=== PATIENT | male | born 1940 | race Caucasian/White ===

== ENCOUNTER 2018-03-07 13:40 | Inpatient (IN) | payer BC | END 2018-03-09 14:12 | disposition home or self-care (01) | LOC: ER 13:40 → SUR 3N 19:51 → ER 19:19 → SUR 3N 19:19 | PROC: 0DTN4ZZ Resection of Sigmoid Colon, Percutaneous Endoscopic Approach (ICD-10-PCS; principal; 2018-03-07 16:13) | PROC: 07TB4ZZ Resection of Mesenteric Lymphatic, Percutaneous Endoscopic Approach (ICD-10-PCS; 2018-03-07 16:13) | DX: K56.699 Other intestinal obstruction unspecified as to partial versus complete obstruction (principal); I10 Essential (primary) hypertension ==

== ENCOUNTER 2021-12-26 17:39 | Inpatient (IN) | payer BC ==
[~2021-12-26] VITALS: Ht 165.1 cm; Wt 81.8 kg
[~2021-12-26 17:39] MED LIST: HYDR25TA4 PO; LISI40TA13 PO; TERA2CAP4 PO
[2021-12-26 18:14] LABS: MEAN PLATELET VOLUME 7.6 FL (7.4-10.4)
--- NOTE | 2021-12-26 18:15 | NUR ---
PATIENT STATES AT 2200 LAST NIGHT HE WOKE UP DIAPHORETIC WITH STERNAL SHARP/BURNING CHEST PAIN RADIATING TO LEFT CHEST AND NAUSEA. PATIENT GOT UP TO VOMIT BUT WAS NOT ABLE TO. PATIENT STATES HE FELT A "FULLNESS TO HIS NECK" AND DRANK A COKE. EPISODE LASTED APPROXIMATELY 2 HOURS AND PATIENT WAS ABLE TO FALL ASLEEP. PATIENT WOKE UP AT 730 THIS AM WITH DIZZINESS, STATES HIS SBP 105, PATIENT SHOWERED AND SHE RE TOOK HIS SBP 80'S. PATIENT TOOK HIS LISINOPRIL AND SBP 125. STATES FAMILY FRIENDS CONVINCED HIM TO GO TO ER.
[2021-12-26 18:16] LABS: BASOPHILS % (AUTO) 0.3 % (0-1); EOSINOPHILS # (AUTO) 0.1 X10'3 (0-0.9); EOSINOPHILS % (AUTO) 0.4 % (0-6); HEMATOCRIT 39.5 % (42.0-52.0); HEMOGLOBIN 13.6 g/dl (14.0-17.9); LYMPHOCYTES # (AUTO) 2.6 X10'3 (1.1-4.8); LYMPHOCYTES % (AUTO) 17.5 % (21-51); MEAN CORPUSCULAR HEMOGLOBIN 32.3 PG (27.0-31.0); MEAN CORPUSCULAR HGB CONC 34.5 g/dL (33.0-36.5); MEAN CORPUSCULAR VOLUME 93.7 FL (78-98); MONOCYTES # (AUTO) 1.1 X10'3 (0-0.9); MONOCYTES % (AUTO) 7.3 % (2-12); NEUTROPHILS % (AUTO) 74.5 % (42-75); PLATELET COUNT 232 X10'3 (140-440); RED BLOOD COUNT 4.22 X10'6 (4.70-6.10); RED CELL DISTRIBUTION WIDTH 13.4 % (11.5-14.5); WHITE BLOOD COUNT 14.8 X10'3 (4.5-11.0)
[2021-12-26 18:22] LABS: ALANINE AMINOTRANSFERASE 48 U/L (12-78); ALBUMIN 3.1 G/DL (3.4-5.0); ALBUMIN/GLOBULIN RATIO 0.8 (1.1-1.5); ALKALINE PHOSPHATASE 110 IU/L (46-116); ANION GAP 5 (8-16); ASPARTATE AMINO TRANSFERASE 280 U/L (10-37); BILIRUBIN,TOTAL 0.5 MG/DL (0.1-1.0); BLOOD UREA NITROGEN 23 MG/DL (7-18); BUN/CREATININE RATIO 21.1 (5.4-32.0); CALCIUM 8.7 MG/DL (8.5-10.1); CHLORIDE 105 MMOL/L (99-107); CREATININE 1.09 MG/DL (0.60-1.10); GLUCOSE 98 MG/DL (70-104); SODIUM 138 MMOL/L (135-145); TOTAL CARBON DIOXIDE 28.1 MMOL/L (24-32); TOTAL PROTEIN 7.2 G/DL (6.4-8.2); eGFR 65 ML/MIN
--- NOTE | 2021-12-26 18:22 | NUR ---
DR ISABEL MADE AWARE OF PATIENT STATUS, FAMILY AT BEDSIDE.
[2021-12-26] MEDS ORDERED: aspirin 81mg tab.chew PO ONE (18:30)
[2021-12-26] MEDS ORDERED: LISI20TA28 PO (18:35)
[2021-12-26] MEDS ORDERED: D3 (18:35)
[2021-12-26] MEDS ORDERED: TERA2CAP4 PO (18:35)
[2021-12-26] MEDS ORDERED: heparin 10,000 units/1 ML INJ IV ONE (20:05)
[2021-12-26] MEDS ORDERED: heparin 10,000 units/1 ML INJ IV PRN (20:05)
[2021-12-26] MEDS ORDERED: HYDROcodone/acetaminophen 10/325mg tab PO PRN (20:10)
[2021-12-26] MEDS ORDERED: potassium Cl 40MEQ/1/2NS 520ml 520 ML IV PRN (20:10)
[2021-12-26] MEDS ORDERED: ondansetron/PF 4mg/2ml inj IV PRN (20:10)
[2021-12-26] MEDS ORDERED: acetaminophen 325mg tablet PO PRN ×2 (20:10)
[2021-12-26] MEDS ORDERED: HYDROcodone/acetaminophen 5mg/325mg tablet PO PRN (20:10)
[2021-12-26] MEDS ORDERED: magnesium 4gm in 100ml NS 100 ML IV PRN (20:10)
[2021-12-26] MEDS ORDERED: morphine 2 MG/ML inj. syringe IV PRN ×2 (20:10)
[2021-12-26] MEDS ORDERED: magnesium Cl slow-release 64mg tablet PO PRN (20:10)
[2021-12-26] MEDS ORDERED: potassium Cl 20 mEq SR tablet PO PRN ×2 (20:10)
[2021-12-26] MEDS ORDERED: CHOL500050 PO (20:23)
[2021-12-26 20:24] LABS: APTT 31 SECONDS (22-32)
[2021-12-26] MEDS ORDERED: LISI30TA4 PO (20:25)
--- NOTE | 2021-12-26 20:25 | NUR ---
DR LUGO AT BEDSIDE EVALUATING PT. DR LUGO AWARE OF B/P 92/46 WITH HR 46
[2021-12-26] MEDS: heparin 25,000 UNIT/250ml bag 250 ML IV PRN (20:35)
[2021-12-26] MEDS ORDERED: CefTRIAXone 2gm/D5W 50ml BAG 50 ML IV ONE (20:50)
[2021-12-26] MEDS ORDERED: pantoprazole 40MG/NS 100ML BAG 100 ML IV ONE ×2 (20:55→21:10)
[2021-12-26] MEDS: Terazosin 1mg capsule PO SCH (20:58)
[2021-12-26] MEDS ORDERED: temazepam 15mg capsule PO PRN (21:00)
[2021-12-26] MEDS: normal saline 1000ml 1,000 ML IV SCH (21:05)
--- NOTE | 2021-12-26 21:14 | NUR ---
SPOUSE AILYN [phone] AND DAUGHTER ARIN [phone] AT BEDSIDE
--- NOTE | 2021-12-26 21:15 | NUR ---
PT DENIES CHEST PAIN AND BACK PAIN AT THIS TIME. RESP EVEN AND UNLABORED, RESTING IN BED. HEPARIN GTT INFUSING ORDERED. TELE SHOWING SB 44-58 WITH OCC PVC'S
--- NOTE | 2021-12-26 21:41 | NUR ---
Page Sent promotional table spacer PAGER ID: [phone] MESSAGE: Jose Thorne P in room 1 ER, troponin 70,346
[2021-12-27] VITALS (13 sets, daily range): BP systolic 86–136; BP diastolic 48–84
--- NOTE | 2021-12-27 00:34 | NUR ---
RESTING IN BED WITH DAUGHTER AT BEDSIDE. DENIES CHEST PAIN AND SOB. TELE SHOWING BRADYCARDIA 48-58/MIN. DR LUGO AWARE, CONTINUE TO MONITOR
[2021-12-27 02:42] LABS: APTT 38 SECONDS (22-32)
[2021-12-27 02:48] LABS: BASOPHILS % (AUTO) 0.3 % (0-1); EOSINOPHILS % (AUTO) 0.2 % (0-6); HEMATOCRIT 38.6 % (42.0-52.0); HEMOGLOBIN 13.3 g/dl (14.0-17.9); LYMPHOCYTES # (AUTO) 1.9 X10'3 (1.1-4.8); LYMPHOCYTES % (AUTO) 12.7 % (21-51); MEAN CORPUSCULAR HEMOGLOBIN 32.6 PG (27.0-31.0); MEAN CORPUSCULAR HGB CONC 34.6 g/dL (33.0-36.5); MEAN CORPUSCULAR VOLUME 94.4 FL (78-98); MEAN PLATELET VOLUME 8.2 FL (7.4-10.4); MONOCYTES # (AUTO) 1.1 X10'3 (0-0.9); MONOCYTES % (AUTO) 7.5 % (2-12); NEUTROPHILS # (AUTO) 11.7 X10'3 (1.8-7.7); NEUTROPHILS % (AUTO) 79.3 % (42-75); PLATELET COUNT 201 X10'3 (140-440); RED BLOOD COUNT 4.09 X10'6 (4.70-6.10); RED CELL DISTRIBUTION WIDTH 13.1 % (11.5-14.5); WHITE BLOOD COUNT 14.7 X10'3 (4.5-11.0)
[2021-12-27 02:50] LABS: ALANINE AMINOTRANSFERASE 55 U/L (12-78); ALBUMIN/GLOBULIN RATIO 0.8 (1.1-1.5); ALKALINE PHOSPHATASE 109 IU/L (46-116); ANION GAP 4 (8-16); ASPARTATE AMINO TRANSFERASE 294 U/L (10-37); BILIRUBIN,TOTAL 0.6 MG/DL (0.1-1.0); BLOOD UREA NITROGEN 20 MG/DL (7-18); CALCIUM 8.8 MG/DL (8.5-10.1); CHLORIDE 106 MMOL/L (99-107); CREATININE 0.91 MG/DL (0.60-1.10); GLUCOSE 122 MG/DL (70-104); POTASSIUM 4.9 MMOL/L (3.5-5.1); SODIUM 138 MMOL/L (135-145); TOTAL CARBON DIOXIDE 28.5 MMOL/L (24-32); TOTAL PROTEIN 6.9 G/DL (6.4-8.2); eGFR 80 ML/MIN
[2021-12-27] MEDS: K and/or MAG REPLACEMENT MC SCH ×2 (07:19→20:00)
[2021-12-27] MEDS ORDERED: lisinopril 10 MG tablet PO SCH (08:00)
[2021-12-27] MEDS: normal saline 1000ml 1,000 ML IV SCH (11:11)
--- NOTE | 2021-12-27 11:29 | NUR ---
Page Sent promotional table spacer PAGER ID: [phone] MESSAGE: Room 3025A pt has BP of 86/49 (map 62) HR 54 pt is asymptomatic. Call back Arvin AHRMON at [phone] (95 character message out of a maximum of 240)
[2021-12-27] MEDS ORDERED: normal saline 250ml IV soln 250 ML IV ONE (12:05)
[2021-12-27] MEDS: heparin 25,000 UNIT/250ml bag 250 ML IV PRN (17:03)
--- NOTE | 2021-12-27 18:18 | NUR ---
[place] documentation: I have reviewed and agree with all interventions, assessments performed and documented by Arvin HARMON . [place] Medication Administration: For this medication-pass time frame, all medication were reviewed, dispensed, administered and documented per hospital policy by Arvin HARMON .
[2021-12-27] MEDS ORDERED: nitroGLYCERIN-Tridil 50MG/D5W 250 ML IV ONE (18:20)
[2021-12-27] MEDS ORDERED: LIDOcaine 1% 30ml preserv. free vial ONE (18:21)
[2021-12-27] MEDS ORDERED: midazolam 1 mg/ML 2ml injection ONE (18:21)
[2021-12-27] MEDS ORDERED: iohexol 350MG/ML 100ml bottle IV ONE ×2 (18:21→19:16)
[2021-12-27] MEDS ORDERED: heparin 1,000unit/ml 10ml vial 10 ML ONE (18:21)
[2021-12-27] MEDS ORDERED: fentaNYL/PF 50MCG/1 ML 2ML syringe ONE (18:21)
[2021-12-27] MEDS ORDERED: verapamil 2.5 mg/ml inj IV ONE (18:21)
--- NOTE | 2021-12-27 18:28 | NUR ---
Problems reprioritized. Patient report given, questions answered & plan of care reviewed with Parisa HARMON.
[2021-12-27] MEDS ORDERED: ticagrelor 90mg tablet ONE (19:19)
[2021-12-27] MEDS ORDERED: aspirin 325mg tablet ONE (19:19)
[2021-12-27] MEDS ORDERED: tPA-cathflo 2 MG/2 ml IV flush ONE (19:29)
[2021-12-27] MEDS ORDERED: tirofiban 5mg in NS 100mL 100 ML IV ONE (19:52)
[2021-12-27] MEDS: tirofiban 12.5mg in NS 250mL 250 ML IV SCH (20:00)
--- NOTE | 2021-12-27 20:48 | NUR ---
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 Family at bedside, pt assessed. 2 RN check of Aggrastat. Hemostat band on right radial site checked, first release at 2099. Plan of care discussed, all questions answered.
[2021-12-27] MEDS ORDERED: HYDROcodone/acetaminophen 5mg/325mg tablet PO PRN (20:50)
[2021-12-27] MEDS ORDERED: HYDROcodone/acetaminophen 10/325mg tab PO PRN (20:50)
[2021-12-27] MEDS: Terazosin 1mg capsule PO SCH (21:00)
[2021-12-28] VITALS: BP 98/50
[2021-12-28] MEDS: tirofiban 12.5mg in NS 250mL 250 ML IV SCH (00:56)
[2021-12-28] MEDS: normal saline 1000ml 1,000 ML IV SCH ×2 (00:58→15:44)
[2021-12-28 02:00] VITALS: BP 93/48
[2021-12-28 02:22] LABS: BASOPHILS % (AUTO) 0.3 % (0-1); EOSINOPHILS % (AUTO) 0.2 % (0-6); HEMATOCRIT 35.8 % (42.0-52.0); HEMOGLOBIN 12.2 g/dl (14.0-17.9); LYMPHOCYTES # (AUTO) 1.3 X10'3 (1.1-4.8); LYMPHOCYTES % (AUTO) 8.4 % (21-51); MEAN CORPUSCULAR HEMOGLOBIN 32.5 PG (27.0-31.0); MEAN CORPUSCULAR VOLUME 95.6 FL (78-98); MONOCYTES # (AUTO) 1.5 X10'3 (0-0.9); MONOCYTES % (AUTO) 9.5 % (2-12); NEUTROPHILS # (AUTO) 12.5 X10'3 (1.8-7.7); NEUTROPHILS % (AUTO) 81.6 % (42-75); PLATELET COUNT 189 X10'3 (140-440); RED BLOOD COUNT 3.75 X10'6 (4.70-6.10); RED CELL DISTRIBUTION WIDTH 13.5 % (11.5-14.5); WHITE BLOOD COUNT 15.3 X10'3 (4.5-11.0)
[2021-12-28 02:35] LABS: ALANINE AMINOTRANSFERASE 47 U/L (12-78); ALBUMIN 2.6 G/DL (3.4-5.0); ALBUMIN/GLOBULIN RATIO 0.7 (1.1-1.5); ALKALINE PHOSPHATASE 93 IU/L (46-116); ANION GAP 7 (8-16); ASPARTATE AMINO TRANSFERASE 205 U/L (10-37); BLOOD UREA NITROGEN 22 MG/DL (7-18); BUN/CREATININE RATIO 24.2 (5.4-32.0); CALCIUM 8.1 MG/DL (8.5-10.1); CHLORIDE 104 MMOL/L (99-107); CHOL/HDL RATIO 2.3 (0.00-4.99); CHOLESTEROL 106 MG/DL (0-200); CREATININE 0.91 MG/DL (0.60-1.10); GLUCOSE 108 MG/DL (70-104); HDL CHOLESTEROL 46 MG/DL (35-60); LDL CHOLESTEROL 56 MG/DL (50-100); POTASSIUM 4.1 MMOL/L (3.5-5.1); SODIUM 137 MMOL/L (135-145); TOTAL CARBON DIOXIDE 26.5 MMOL/L (24-32); TOTAL PROTEIN 6.4 G/DL (6.4-8.2); TRIGLYCERIDES 52 MG/DL (20-135); eGFR 80 ML/MIN
[2021-12-28] MEDS: K and/or MAG REPLACEMENT MC SCH ×2 (08:00→20:00)
[2021-12-28 08:29] VITALS: BP 96/52
[2021-12-28 09:12] LABS: BASOPHILS % (AUTO) 0.1 % (0-1); EOSINOPHILS % (AUTO) 0.2 % (0-6); HEMATOCRIT 35.5 % (42.0-52.0); LYMPHOCYTES # (AUTO) 1.8 X10'3 (1.1-4.8); LYMPHOCYTES % (AUTO) 11.7 % (21-51); MEAN CORPUSCULAR HEMOGLOBIN 31.9 PG (27.0-31.0); MEAN CORPUSCULAR HGB CONC 33.8 g/dL (33.0-36.5); MEAN CORPUSCULAR VOLUME 94.2 FL (78-98); MEAN PLATELET VOLUME 8.3 FL (7.4-10.4); MONOCYTES # (AUTO) 1.5 X10'3 (0-0.9); MONOCYTES % (AUTO) 9.4 % (2-12); NEUTROPHILS # (AUTO) 12.3 X10'3 (1.8-7.7); NEUTROPHILS % (AUTO) 78.6 % (42-75); PLATELET COUNT 185 X10'3 (140-440); RED BLOOD COUNT 3.76 X10'6 (4.70-6.10); RED CELL DISTRIBUTION WIDTH 13.3 % (11.5-14.5); WHITE BLOOD COUNT 15.6 X10'3 (4.5-11.0)
[2021-12-28] MEDS: ticagrelor 90mg tablet PO SCH ×2 (09:23→20:00)
[2021-12-28] MEDS: atorvastatin 20mg tablet PO SCH (09:24)
[2021-12-28] MEDS: aspirin 81mg, enteric-coated 1 TAB TABLET.DR PO SCH (09:27)
--- NOTE | 2021-12-28 09:43 | NUR ---
Paged Dr. Lockett regarding pts BP systolic is 95, asking Dr if she wants to hold med. PAGER ID: [phone] MESSAGE: [id number], Oj Everett. Pt BP is 95/46 parameters for lisinopril 10mg says to hold for less than 100 systolic, would you like me to hold med? Fatou U 7815.
[2021-12-28] MEDS ORDERED: lisinopril 10 MG tablet PO SCH (09:45)
[2021-12-28] MEDS ORDERED: lisinopril 2.5mg tablet PO SCH (10:45)
[2021-12-28 12:15] VITALS: BP 98/52
[2021-12-28 18:00] VITALS: BP 99/54
--- NOTE | 2021-12-28 18:39 | NUR ---
Problems reprioritized. Patient report given, questions answered & plan of care reviewed with Parisa HARMON, patient stable at transfer of care.
[2021-12-28] MEDS: Terazosin 1mg capsule PO SCH (21:00)
[2021-12-28 22:00] VITALS: BP 98/57
[2021-12-29 02:00] VITALS: BP 96/56
[2021-12-29] MEDS: tirofiban 12.5mg in NS 250mL 250 ML IV SCH (05:58)
[2021-12-29] MEDS: normal saline 1000ml 1,000 ML IV SCH (06:02)
[2021-12-29 06:15] LABS: BASOPHILS % (AUTO) 0.4 % (0-1); EOSINOPHILS # (AUTO) 0.1 X10'3 (0-0.9); EOSINOPHILS % (AUTO) 0.9 % (0-6); HEMATOCRIT 33.5 % (42.0-52.0); HEMOGLOBIN 11.5 g/dl (14.0-17.9); LYMPHOCYTES # (AUTO) 1.6 X10'3 (1.1-4.8); LYMPHOCYTES % (AUTO) 12.4 % (21-51); MEAN CORPUSCULAR HEMOGLOBIN 32.5 PG (27.0-31.0); MEAN CORPUSCULAR HGB CONC 34.2 g/dL (33.0-36.5); MEAN CORPUSCULAR VOLUME 95.1 FL (78-98); MEAN PLATELET VOLUME 8.3 FL (7.4-10.4); NEUTROPHILS # (AUTO) 10.1 X10'3 (1.8-7.7); NEUTROPHILS % (AUTO) 78.3 % (42-75); PLATELET COUNT 180 X10'3 (140-440); RED BLOOD COUNT 3.52 X10'6 (4.70-6.10); RED CELL DISTRIBUTION WIDTH 13.3 % (11.5-14.5); WHITE BLOOD COUNT 12.9 X10'3 (4.5-11.0)
--- NOTE | 2021-12-29 06:21 | NUR ---
Patient in room PCU 3025. I have received report from Parisa HARMON and had the opportunity to ask questions and assume patient care.
[2021-12-29 06:29] LABS: ALANINE AMINOTRANSFERASE 40 U/L (12-78); ALBUMIN 2.4 G/DL (3.4-5.0); ALBUMIN/GLOBULIN RATIO 0.6 (1.1-1.5); ALKALINE PHOSPHATASE 106 IU/L (46-116); ANION GAP 4 (8-16); ASPARTATE AMINO TRANSFERASE 84 U/L (10-37); BLOOD UREA NITROGEN 19 MG/DL (7-18); BUN/CREATININE RATIO 24.4 (5.4-32.0); CALCIUM 8.2 MG/DL (8.5-10.1); CHLORIDE 106 MMOL/L (99-107); CREATININE 0.78 MG/DL (0.60-1.10); GLUCOSE 106 MG/DL (70-104); POTASSIUM 3.8 MMOL/L (3.5-5.1); SODIUM 138 MMOL/L (135-145); TOTAL CARBON DIOXIDE 27.7 MMOL/L (24-32); TOTAL PROTEIN 6.1 G/DL (6.4-8.2); eGFR > 90 ML/MIN
[2021-12-29 07:58] VITALS: BP 105/53
[2021-12-29] MEDS: K and/or MAG REPLACEMENT MC SCH (08:00)
[2021-12-29] MEDS ORDERED: lisinopril 2.5mg tablet PO SCH (08:00)
[2021-12-29] MEDS: ticagrelor 90mg tablet PO SCH (09:23)
[2021-12-29] MEDS: aspirin 81mg, enteric-coated 1 TAB TABLET.DR PO SCH (09:23)
[2021-12-29] MEDS: atorvastatin 20mg tablet PO SCH (09:26)
[2021-12-29 11:36] VITALS: BP 99/59
--- NOTE | 2021-12-29 14:24 | NUR ---
Paged Dr. Lockett regarding when the patient will be discharged. They need brillinta prior to discharge. PAGER ID: [phone] MESSAGE: [id number], Farzana Everett. Pts family needs to go and pickle processor their Brillinta prior to discharge, they need to pickle processor meds before pharmacy closes. Fatou [facility] 3915.
[2021-12-29] MEDS ORDERED: ASPI-1071 PO (15:27)
[2021-12-29] MEDS ORDERED: LISI2.5T14 PO (15:27)
[2021-12-29] MEDS ORDERED: ATOR20TA66 PO (15:27)
[2021-12-29] MEDS ORDERED: TICA90TA PO (15:27)
--- NOTE | 2021-12-29 19:07 | NUR ---
Patient stable for discharge per Dr. Lockett. All discharge instructions reviewed with patients family since he is italian speaking only. Patient verbalized to family who was interpreting that he understood. New prescriptions e-scripted to [facility]. All belongings collected and sent with the patient. walked out with family after his brillinta was brought in.
== END 2021-12-29 19:00 | disposition home or self-care (01) | DRG 247 ==
LOC: ER 17:41 → ED HOLD 20:13 → PCU 3S 12-27 08:10
PROVIDERS: ADMIT Internal Medicine; ATTEND Internal Medicine
PROC: 4A023N7 Measurement of Cardiac Sampling and Pressure, Left Heart, Percutaneous Approach (ICD-10-PCS; principal; 2021-12-27)
PROC: B2111ZZ Fluoroscopy of Multiple Coronary Arteries using Low Osmolar Contrast (ICD-10-PCS; 2021-12-27)
PROC: 027135Z Dilation of Coronary Artery, Two Arteries with Two Drug-eluting Intraluminal Devices, Percutaneous Approach (ICD-10-PCS; 2021-12-27)
PROC: 3E07317 Introduction of Other Thrombolytic into Coronary Artery, Percutaneous Approach (ICD-10-PCS; 2021-12-27)
DX: I21.4 Non-ST elevation (NSTEMI) myocardial infarction (principal); D72.829 Elevated white blood cell count, unspecified; E78.5 Hyperlipidemia, unspecified; I12.9 Hypertensive chronic kidney disease with stage 1 through stage 4 chronic kidney disease, or unspecified chronic kidney disease; I25.10 Atherosclerotic heart disease of native coronary artery without angina pectoris; N18.30 Chronic kidney disease, stage 3 unspecified; N40.0 Benign prostatic hyperplasia without lower urinary tract symptoms; Z85.048 Personal history of other malignant neoplasm of rectum, rectosigmoid junction, and anus; Z87.891 Personal history of nicotine dependence
CPT/HCPCS: 92975; 93306; 93454; 99285; C9600; 36415; 71045; 80053; 80061; 83605; 83880; 84145; 84484; 85025; 85610; 85730; 87040; 93005; 97161; 97530; 99152; 99153; A4620; A6258; C1725; C1751; C1757; C1769; C1874; C1894; C9113; G0378; J0696; J1644; J2250; J2997; J3010; J3246; J3490; J7030; J7050; Q9967